=== PATIENT | female | born 1960 | race Caucasian/White ===

== ENCOUNTER 2025-08-18 11:33 | Emergency (ER) | payer SELFPAY ==
--- NOTE | ~2025-08-18 | XR_ITS ---
Examination: XR shoulder LT min 2V Clinical History: ANT PAIN/BRUISING,FALL ARM PULL BACKWARDS Comparison: None Technique: 4 views left shoulder Findings/impression: 1. Nondisplaced fracture along greater tubercle not excluded. 2. No other fracture or dislocation identified. Reviewed, dictated and finalized at location R. OR SOFTWARE SYSTEMS ENGINEER
--- OUTSIDE RECORDS SUMMARY | 2025-08-18 11:39 | XMS_ITS | Clinical Summary ---
Author Organization [facility] Address [address] [place] [address] Care Team Providers Care Disaster Recovery Specialist Name Role Phone Unavailable Primary Care Provider Unavailabl e Source Comments [facility],non-owned Affiliates and Associated Physician Practices is amultiple site organization consisting of ambulatory clinics and hospital sitesin [place], [place], [place] and [place]. This disclosure is being madepursuant to the Care Everywhere program and may not contain all information available regarding this patient. Last updated 18.[facility] Social History Tobacco Use Types Packs/Day Years Used Date Smoking Tobacco: Never Assessed Comments Unknown Sex and Gender Information Value Date Recorded Sex Assigned at Not on file Legal Sex Female 12:38 PM CDT Gender Identity Not on file Sexual Orientation Not on file Plan of Treatment Health Maintenance Due Date Last Done Comments COLOGUARD (AGES 45-75) - COL ON CA SCREENING 1961 COLON MONITORING 1961 COLONOSCOPY - COLON CA SCREENING 1961 CT COLONOGRAPHY - COLON CA SCREENING 1961 Colorectal Cancer Screening 1961 FIT - COLON CA SCREENING 1961 FLEX SIG - COLON CA SCREENING 1961 LIPID TESTING 1961 MAMMOGRAM 1961 HIV SCREENING 02/02/1976 HEPATITIS C SCREENING 01/28/1979 DTAP/TDAP/TD VACCINES (1 - Tdap) 02/02/1980 PAP SMEAR 1982 Cervical Cancer Screening 1991 PAP with HPV 1991 PNEUMOCOCCAL VACCINE 50+ (1 of 1 - PCV) 2011 ZOSTER VACCINE (1 of 2) 2011 DEPRESSION SCREENING 09/14/2024 COVID-19 VACCINE (2 - 2024-2 6 season) 2025 01/18/2021 INFLUENZA VACCINE (#1) 2025 Respiratory Syncytial Virus (RSV) Vaccine Pt: or over 60 yrs (1 - 1-dose 75+ series) 02/02/2036 HEPATITIS B VACCINE Aged Out No longe r eligible based on patient's age to complete this topic HIB VACCINE Aged Out No longer eligi ble based on patient's age to complete this topic HPV VACCINE Aged Out No longer eligi ble based on patient's age to complete this topic MENINGOCOCCAL (Group B) VACC INE SHARED DECISION-MAKING Aged Out No longer eligibl e based on patient's age to complete this topic MENINGOCOCCAL GROUPS A/C/Y/W VACCINE Aged Out No longer eligible b ased on patient's age to complete this topic
--- OUTSIDE RECORDS SUMMARY | 2025-08-18 11:39 | XMS_ITS | Clinical Summary ---
Author Organization [facility] Address [address] [place] [address] Phone Care Team Providers Care Golf Stud Riveter Name Role Phone Provider, None Primary Care Provider Unavailabl e Allergies Active Allergy Reactions Criticality Noted Date Comments Penicillins Rash 12/28/2016 Medications Phenytoin (DILANTIN PO) Take 200 mg by mouth daily. Active PHENYTOIN PO Take 300 mg by mouth nightly. Active ALBUTEROL IN take by inhalation. Active ketorolac (TORADOL) 10 MG Tablet Take 1 Tab by mouth 3 times daily as needed for Pain. 9 Tab 0 12/28/2016 Active Social History Tobacco Use Types Packs/Day Years Used Date Smoking Tobacco: Never Alcohol Use Standard Drinks/Week Comments No 0 (1 standard drink = 0.6 oz pur e alcohol) Comments No Sex and Gender Information Value Date Recorded Sex Assigned at Not on file Legal Sex Female 9:27 PM CDT Gender Identity Not on file Sexual Orientation Not on file Last Filed Vital Signs Vital Sign Reading Time Taken Comments Blood Pressure 126/66 12/28/2016 7:45 PM CDT Pulse 79 12/28/2016 7:45 PM CDT Temperature 37.1 C (98.8 F) 12/28/2016 5:05 PM CDT Respiratory Rate 20 12/28/2016 5:41 PM CDT Oxygen Saturation 96% 12/28/2016 7:45 PM CDT Inhaled Oxygen Concentration - - Weight 102.5 kg (226 lb) 12/28/2016 5:05 PM CDT Height 180.3 cm (5' 11) 12/28/2016 5:05 PM CDT Body Mass Index 31.52 12/28/2016 5:05 PM CDT Plan of Treatment Health Maintenance Due Date Last Done Comments Hepatitis C Virus (HCV) Screening 1961 Pap Smear 1982 Cervical Cancer Screening (CCS) 1991 HPV/Cotest 1991 Cologuard 2006 Colonoscopy 2006 Colorectal Cancer Screening 2006 Immunochemical Fecal Occult Blood 2006 Zoster Immunization (1 of 2) 2011 Pneumococcal Immunization (50+ years) (2 of 2 - PCV) 02/02/2016 2015 Influenza Immunization (#1) 05/15/202506/16, 07/20/2018, 06/04/2017, Additional history exists SARS-COV-2 Immunization (3 - season) 2025 02/15/2021, 01/18/2021 Respiratory Syncytial Virus (RSV) Immunization (Adult) (1 - 1-dose 75+ series) 02/02/2036 DTaP/Tdap/Td Immunization Discontinued 2015 Pneumococcal Immunization Combined Discontinued 2015 TdaP Immunization Completed 2015 Hepatitis B Immunization Aged Out No longer eligible based on patient's age to complete this topic Human Papillomavirus (HPV) Immunization Aged Out No longer eligible based on patient's age to complete this topic Meningococcal Immunization (ACWY) Aged Out No longer eligible based on patient's age to complete this topic Rotavirus Immunization Aged Out No lo nger eligible based on patient's age to complete this topic Care Teams Golf Stud Riveter Relationship Specialty Start Date End Date Provider, None [place] PCP - General 12/28/16
--- NOTE | 2025-08-18 11:42 | ED.UPPEXIN ---
HPI - Extremity Injury (Upper) General Chief Complaint: Extremity Injury, Upper Stated Complaint: left arm injury Time Seen by Provider: 08/18/25 11:55 Source: patient Mode of arrival: ambulatory Limitations: no limitations History of Present Illness HPI narrative: Chanda is a 65-year-old female patient presenting to the clinic today with complaints of left upper arm/shoulder pain that occurred approximately 6 days ago. She reports she was coming home from work and slipped on her porch in got her left arm caught and a chair and this caused pain to her shoulder and humerus. Rates her pain currently at 10 at 10. States she has been taking ibuprofen and has been helping for the pain. Has bruising and tenderness over the biceps musculature of the left arm. Pain with posterior reaching and raising her arm above her head. Related Data Home Medications ?Medication ?Instructions ?Recorded ?Confirmed ?Last Taken ?Type albuterol sulfate 2.5 mg/3 mL mg 08/18/25 Unknown History (0.083 %) solution for nebulization albuterol sulfate 90 mcg/actuation inhalation 08/18/25 Unknown History aerosol inhaler phenytoin sodium extended 100 mg mg PO 08/18/25 Unknown History capsule Allergies Allergy/AdvReac Type Severity Reaction Status Date / Time Penicillins Allergy Unknown Unknown Verified 08/18/25 11:59 Review of Systems Review of Systems: Pertinent positives per HPI. Patient denies any fever, chills, rash, headache, visual changes, dizziness, cough, runny nose, sore throat, shortness of breath, chest pain, palpitations, nausea, vomiting, diarrhea, constipation, abdominal pain, or any urinary issues. PMFSH Comments At the time of my signature, I reviewed and agree with the nursing past medical, surgical, social, and family history. There is no relevant family history pertinent to the patient complaint. Exam Narrative: General: Well-developed, well nourished, in no apparent distress Head: Normocephalic, atraumatic. Cardio: Regular rate and rhythm, s1 and s2 normal, no murmur appreciated. Resp: Clear to auscultation bilaterally, no rhonchi, rales, wheezing or rubs. Musculoskeletal: No deformity, bruising with mild swelling over the left biceps musculature,tender to palpation over the anterior and posterior left shoulder, limited range of motion due to pain-unable to do posterior reach her lift her left arm above her head, muscle strength strong and equal, peripheral pulse strong, no edema, no cyanosis, normal gait and station Course Course Level of Care: Express Care Visit Vital Signs Vital signs: Vital Signs Temperature 36.4 C L 08/18/25 11:50 Pulse Rate 81 08/18/25 11:50 Respiratory Rate 18 08/18/25 11:50 Blood Pressure 133/78 08/18/25 11:50 Pulse Oximetry 99 08/18/25 11:50 Oxygen Delivery Room Air 08/18/25 11:50 Temperature 36.4 C L 08/18/25 11:50 Pulse Rate 81 08/18/25 11:50 Respiratory Rate 18 08/18/25 11:50 Blood Pressure 133/78 08/18/25 11:50 Pulse Oximetry 99 08/18/25 11:50 Oxygen Delivery Room Air 08/18/25 11:50 MDM MDM Narrative Medical decision making narrative: At the time of visit patient is resting comfortably on the exam table. Patient appears to be nontoxic. complaints of left upper arm/shoulder pain that occurred approximately 6 days ago. She reports she was coming home from work and slipped on her porch in got her left arm caught and a chair and this caused pain to her shoulder and humerus. Rates her pain currently at 10 at 10. States she has been taking ibuprofen and has been helping for the pain. Has bruising and tenderness over the biceps musculature of the left arm. Pain with posterior reaching and raising her arm above her head. On exam patient has pain bruising/mild swelling to the biceps musculature of the left arm, to palpation over the anterior and posterior left shoulder, pain with range of motion-posterior reach and raising her arm above her head, strong peripheral pulse, strong hand grasp. X-ray of the left shoulder was ordered. X-ray of the left shoulder was ordered. Diagnostics: X-ray of the left shoulder was performed shows a possible nondisplaced fracture of greater tubercle of the left humerus Plan: I suspect patient has acute left shoulder pain/possible nondisplaced fracture of the great tubercle left humerus. Arm sling was given. Prescription for hydrocodone was sent to the pharmacy for moderate to severe pain. Will have patient follow-up with Dr. Hernandez-orthopedic provider. Work note was given for no use of the left arm until cleared by orthopedic provider. Supportive measures were discussed with the patient and they voiced understanding discharge instructions and agrees to treatment plan. Return precautions reviewed. Differential Diagnosis Differential Diagnosis: Differential diagnostic considerations for upper extremity injury include sprain/strain of wrist, fracture of wrist, finger sprain, dislocation of finger, fracture of hand, dislocation of shoulder, fracture of humerus, fracture of clavicle, laceration, tendon injury, carpal tunnel syndrome. Imaging Data Radiologist's impression: X-ray shows a possible closed nondisplaced fracture of the greater tubercle of the left humerus Discharge Plan Discharge Clinical Impression: Acute pain of left shoulder Fracture of greater tuberosity of humerus Qualifiers: Encounter type: initial encounter Fracture type: closed Fracture alignment: nondisplaced Laterality: left Qualified Code(s): S42.255A - Nondisplaced fracture of greater tuberosity of left humerus, initial encounter for closed fracture Patient Disposition: Home Condition: Stable Instructions: Antibiotic Form, Shoulder Pain (ED), Proximal Humerus Fracture (ED) Additional Instructions: Rest, ice, elevate, and wear arm sling as directed Tylenol/motrin for pain as discussed. May take hydrocodone for moderate to severe pain-this medication has Tylenol in it Follow up with your PCP if symptoms persist more than 1 week. Follow-up with Dr. Hernandez orthopedic provider-call office today to schedule appointment. Patient Language: Portuguese Prescriptions: New hydrocodone-acetaminophen 5-325 mg tablet 1 tablet PO Q8H PRN (Reason: pain) 3 Days Qty: 10 0RF No Action albuterol sulfate 2.5 mg /3 mL (0.083 %) solution for nebulization phenytoin sodium extended 100 mg capsule PO albuterol sulfate 90 mcg/actuation HFA aerosol inhaler INHALATION Follow-up/Referrals: Mojgan,Monserrat Marc APN [Primary Care Provider, Unknown] Juan Diego Hernandez MD [Physician, Orthopedics] - 3 Days Referral Note: X-ray shows a possible nondisplaced fracture along the greater tubercle Clinical Impression: Acute pain of left shoulder; Fracture of greater tuberosity of humerus Stand Alone Forms: Work/School Release IP Time of Disposition: 12:39 Quality NIHSS Nursing Documentation ED NIHSS nursing documentation: reviewed/agree
[2025-08-18 11:50] VITALS: BP 133/78; PULSE 81; RESP 18; TEMP 36.4; O2SAT 99
== END 2025-08-18 12:46 | disposition home or self-care (01) ==
PROVIDERS: Emergency Provider Nurse Practitioner Family; PCP Nurse Practitioner Family
DX: S42.255A Nondisplaced fracture of greater tuberosity of left humerus, initial encounter for closed fracture (principal); W01.0XXA Fall on same level from slipping, tripping and stumbling without subsequent striking against object, initial encounter
CPT/HCPCS: 73030; 99213; A4565; G0463